=== PATIENT | female | born 1935 | race Caucasian/White ===

== ENCOUNTER 2022-02-01 12:29 | Inpatient (IN) ==
[2022-02-01] MEDS: cloNIDine HCL 0.1 MG TABLET PO SCH (21:34)
[2022-02-01] MEDS: atenoloL 50 MG TABLET PO SCH (21:35)
[2022-02-01] MEDS: ZINC PO SCH (21:36)
[2022-02-01] MEDS: VIT E PO SCH (21:36)
[2022-02-01] MEDS: VIT A PO SCH (21:36)
[2022-02-01] MEDS: VIT C PO SCH (21:36)
[2022-02-01] MEDS: COPPER PO SCH (21:36)
[2022-02-02 06:14] LABS: Basophils % 0.2 %; Eosinophils # 0.1 K/mcL (0.0-0.6); Eosinophils % 0.6 %; Hematocrit 34.7 % (35.3-44.9); Hemoglobin 11.5 g/dL (11.5-15.4); Immature Granulocytes % 1.6 % (0-4); Lymphocytes # 3.2 K/mcL (0.6-4.6); Lymphocytes % 24.3 %; Mean Corpuscular HGB Conc 33.1 g/dL (31.6-35.5); Mean Corpuscular Hemoglobin 29.9 pg (28.0-33.3); Mean Corpuscular Volume 90.1 fL (83.0-100.0); Mean Platelet Volume 11.4 fL (9.4-12.4); Monocytes # 0.9 K/mcL (0.0-1.3); Monocytes % 6.9 %; Neutrophils # 8.7 K/mcL (1.6-8.9); Platelet Count 259 K/mcL (140-400); Red Blood Count 3.85 M/mcL (3.82-4.97); Red Cell Distribution Width 13.7 % (11.5-14.5); Segmented Neutrophils % 66.4 %; White Blood Count 13.1 K/mcL (4.3-11.1)
[2022-02-02] MEDS: *HR* Enoxaparin 40 MG/0.4 ML SYRINGE SQ SCH (06:34)
[2022-02-02 06:39] LABS: Alanine Aminotransferase 39 Units/L (7-52); Albumin/Globulin Ratio 1.2 (1.1-2.2); Alkaline Phosphatase 53 Units/L (34-104); Aspartate Amino Transferase 16 Units/L (13-39); BUN/Creatinine Ratio 24 (6-26); Bilirubin,Total 0.3 mg/dL (0.3-1.0); Blood Urea Nitrogen 24 mg/dL (8-23); Carbon Dioxide 29 mEq/L (23-29); Chloride 101 mEq/L (98-107); Globulin 2.5 g/dL (2.4-3.5); Glucose 106 mg/dL (70-105); Magnesium 1.9 mg/dL (1.6-2.6); Osmolality,Calculated 290 (280-300); Potassium 3.8 mEq/L (3.5-5.1); Sodium 138 mEq/L (136-145); Total Protein 5.5 g/dL (6.4-8.9); eGFR For African Americans > 60 (> 60); eGFR For Non-African Americans 53 (> 60)
[2022-02-02] MEDS: Furosemide 20 MG TABLET PO SCH ×3 (08:05→17:03)
[2022-02-02] MEDS: atenoloL 50 MG TABLET PO SCH ×2 (08:05→19:57)
[2022-02-02] MEDS: cloNIDine HCL 0.1 MG TABLET PO SCH ×2 (08:05→19:57)
[2022-02-02] MEDS: Ascorbic Acid 500 MG TABLET PO SCH (08:12)
[2022-02-02] MEDS: Isosorbide MONOnitrate (24 HR) 30 MG TAB.ER.24H PO SCH (08:12)
[2022-02-02] MEDS: Cyanocobalamin (B-12) 1,000 MCG TABLET PO SCH (08:12)
[2022-02-02] MEDS: Spironolactone 25 MG TABLET PO SCH (08:12)
[2022-02-02] MEDS: predniSONE 20 MG TABLET PO SCH (08:12)
[2022-02-02] MEDS: Aspirin 81 MG TAB.CHEW PO SCH (08:13)
[2022-02-02] MEDS: amLODIPine 5 MG TABLET PO SCH (08:13)
[2022-02-02] MEDS: VIT E PO SCH (08:13)
[2022-02-02] MEDS: COPPER PO SCH (08:13)
[2022-02-02] MEDS: VIT A PO SCH (08:13)
[2022-02-02] MEDS: ZINC PO SCH (08:13)
[2022-02-02] MEDS: VIT C PO SCH (08:13)
[2022-02-03] MEDS: *HR* OxyCODONE/APAP 7.5/325 TABLET PO PRN ×2 (00:08→20:55)
[2022-02-03] MEDS: *HR* Enoxaparin 40 MG/0.4 ML SYRINGE SQ SCH (05:30)
[2022-02-03] MEDS: atenoloL 50 MG TABLET PO SCH ×2 (08:05→20:12)
[2022-02-03] MEDS: predniSONE 20 MG TABLET PO SCH (08:07)
[2022-02-03] MEDS: Spironolactone 25 MG TABLET PO SCH (08:07)
[2022-02-03] MEDS: Furosemide 20 MG TABLET PO SCH ×3 (08:07→16:57)
[2022-02-03] MEDS: Isosorbide MONOnitrate (24 HR) 30 MG TAB.ER.24H PO SCH (08:07)
[2022-02-03] MEDS: cloNIDine HCL 0.1 MG TABLET PO SCH ×2 (08:07→20:12)
[2022-02-03] MEDS: Ascorbic Acid 500 MG TABLET PO SCH (08:07)
[2022-02-03] MEDS: Cyanocobalamin (B-12) 1,000 MCG TABLET PO SCH (08:08)
[2022-02-03] MEDS: Aspirin 81 MG TAB.CHEW PO SCH (08:08)
[2022-02-03] MEDS: amLODIPine 5 MG TABLET PO SCH (08:08)
[2022-02-03] MEDS: Ipratropium/Albuterol Neb 3 ML IH PRN (20:22)
[2022-02-04] MEDS: Ipratropium/Albuterol Neb 3 ML IH PRN ×5 (00:03→21:21)
[2022-02-04] MEDS: *HR* Enoxaparin 40 MG/0.4 ML SYRINGE SQ SCH (05:17)
[2022-02-04] MEDS: atenoloL 50 MG TABLET PO SCH ×2 (08:29→19:59)
[2022-02-04] MEDS: cloNIDine HCL 0.1 MG TABLET PO SCH ×2 (08:30→19:57)
[2022-02-04] MEDS: predniSONE 20 MG TABLET PO SCH (08:30)
[2022-02-04] MEDS: Spironolactone 25 MG TABLET PO SCH (08:31)
[2022-02-04] MEDS: amLODIPine 5 MG TABLET PO SCH (08:31)
[2022-02-04] MEDS: Ascorbic Acid 500 MG TABLET PO SCH (08:31)
[2022-02-04] MEDS: Aspirin 81 MG TAB.CHEW PO SCH (08:31)
[2022-02-04] MEDS: Furosemide 20 MG TABLET PO SCH ×3 (08:31→14:59)
[2022-02-04] MEDS: Cyanocobalamin (B-12) 1,000 MCG TABLET PO SCH (08:32)
[2022-02-04] MEDS: *HR* OxyCODONE/APAP 7.5/325 TABLET PO PRN ×2 (08:32→14:59)
[2022-02-04] MEDS: Isosorbide MONOnitrate (24 HR) 30 MG TAB.ER.24H PO SCH (08:32)
[2022-02-05] MEDS: *HR* Enoxaparin 40 MG/0.4 ML SYRINGE SQ SCH (05:00)
[2022-02-05] MEDS: Furosemide 20 MG TABLET PO SCH ×3 (08:38→16:35)
[2022-02-05] MEDS: Isosorbide MONOnitrate (24 HR) 30 MG TAB.ER.24H PO SCH (08:39)
[2022-02-05] MEDS: cloNIDine HCL 0.1 MG TABLET PO SCH ×2 (08:39→20:19)
[2022-02-05] MEDS: amLODIPine 5 MG TABLET PO SCH (08:39)
[2022-02-05] MEDS: Ascorbic Acid 500 MG TABLET PO SCH (08:39)
[2022-02-05] MEDS: Aspirin 81 MG TAB.CHEW PO SCH (08:39)
[2022-02-05] MEDS: *HR* OxyCODONE/APAP 7.5/325 TABLET PO PRN ×2 (08:40→20:22)
[2022-02-05] MEDS: Cyanocobalamin (B-12) 1,000 MCG TABLET PO SCH (08:40)
[2022-02-05] MEDS: atenoloL 50 MG TABLET PO SCH ×2 (08:40→20:20)
[2022-02-05] MEDS: Spironolactone 25 MG TABLET PO SCH (08:40)
[2022-02-06] MEDS: *HR* Enoxaparin 40 MG/0.4 ML SYRINGE SQ SCH (05:19)
[2022-02-06] MEDS: atenoloL 50 MG TABLET PO SCH ×2 (09:25→22:18)
[2022-02-06] MEDS: cloNIDine HCL 0.1 MG TABLET PO SCH ×2 (09:25→22:19)
[2022-02-06] MEDS: Cyanocobalamin (B-12) 1,000 MCG TABLET PO SCH (09:25)
[2022-02-06] MEDS: Aspirin 81 MG TAB.CHEW PO SCH (09:26)
[2022-02-06] MEDS: *HR* OxyCODONE/APAP 7.5/325 TABLET PO PRN ×2 (09:26→16:43)
[2022-02-06] MEDS: Ascorbic Acid 500 MG TABLET PO SCH (09:26)
[2022-02-06] MEDS: Isosorbide MONOnitrate (24 HR) 30 MG TAB.ER.24H PO SCH (09:26)
[2022-02-06] MEDS: Spironolactone 25 MG TABLET PO SCH (09:26)
[2022-02-06] MEDS: amLODIPine 5 MG TABLET PO SCH (09:26)
[2022-02-06] MEDS: Furosemide 20 MG TABLET PO SCH (09:26)
[2022-02-06] MEDS: Ipratropium/Albuterol Neb 3 ML IH PRN (09:41)
[2022-02-06] MEDS: Torsemide 20 MG TABLET PO SCH ×2 (14:41→21:41)
[2022-02-07] MEDS: *HR* Enoxaparin 40 MG/0.4 ML SYRINGE SQ SCH (04:34)
[2022-02-07 05:55] LABS: Basophils % 0.3 %; Eosinophils # 0.6 K/mcL (0.0-0.6); Eosinophils % 3.8 %; Hematocrit 40.4 % (35.3-44.9); Hemoglobin 13.2 g/dL (11.5-15.4); Lymphocytes % 19.2 %; Mean Corpuscular HGB Conc 32.7 g/dL (31.6-35.5); Mean Corpuscular Hemoglobin 29.5 pg (28.0-33.3); Mean Corpuscular Volume 90.4 fL (83.0-100.0); Mean Platelet Volume 10.7 fL (9.4-12.4); Monocytes % 6.8 %; Neutrophils # 10.2 K/mcL (1.6-8.9); Platelet Count 329 K/mcL (140-400); Red Blood Count 4.47 M/mcL (3.82-4.97); Red Cell Distribution Width 13.7 % (11.5-14.5); Segmented Neutrophils % 68.9 %; White Blood Count 14.8 K/mcL (4.3-11.1)
[2022-02-07 06:09] LABS: Lymphocytes # 2.8 K/mcL (0.6-4.6)
[2022-02-07 06:13] LABS: Calcium 9.8 mg/dL (8.6-10.3); Magnesium 2.5 mg/dL (1.6-2.6); Potassium 3.7 mEq/L (3.5-5.1)
[2022-02-07 06:51] VITALS: RESP 16
[2022-02-07] MEDS: cloNIDine HCL 0.1 MG TABLET PO SCH ×2 (07:57→21:34)
[2022-02-07] MEDS: atenoloL 50 MG TABLET PO SCH ×2 (07:57→21:34)
[2022-02-07] MEDS: Aspirin 81 MG TAB.CHEW PO SCH (07:57)
[2022-02-07] MEDS: Ascorbic Acid 500 MG TABLET PO SCH (07:57)
[2022-02-07] MEDS: Spironolactone 25 MG TABLET PO SCH (07:58)
[2022-02-07] MEDS: Cyanocobalamin (B-12) 1,000 MCG TABLET PO SCH (07:58)
[2022-02-07] MEDS: amLODIPine 5 MG TABLET PO SCH (07:58)
[2022-02-07] MEDS: Isosorbide MONOnitrate (24 HR) 30 MG TAB.ER.24H PO SCH (07:58)
[2022-02-07] MEDS ORDERED: Torsemide 20 MG TABLET PO SCH (08:00)
[2022-02-07] MEDS ORDERED: Furosemide 20 MG TABLET PO SCH (15:00)
[2022-02-08] MEDS: *HR* Enoxaparin 40 MG/0.4 ML SYRINGE SQ SCH (05:53)
[2022-02-08 06:47] VITALS: BP 134/65; PULSE 49; TEMP 97.8; O2SAT 95
[2022-02-08] MEDS: Ascorbic Acid 500 MG TABLET PO SCH (08:33)
[2022-02-08] MEDS: atenoloL 50 MG TABLET PO SCH (08:33)
[2022-02-08] MEDS: cloNIDine HCL 0.1 MG TABLET PO SCH (08:33)
[2022-02-08] MEDS: Isosorbide MONOnitrate (24 HR) 30 MG TAB.ER.24H PO SCH (08:33)
[2022-02-08] MEDS: Aspirin 81 MG TAB.CHEW PO SCH (08:34)
[2022-02-08] MEDS: amLODIPine 5 MG TABLET PO SCH (08:34)
[2022-02-08] MEDS: Cyanocobalamin (B-12) 1,000 MCG TABLET PO SCH (08:34)
[2022-02-08] MEDS: Spironolactone 25 MG TABLET PO SCH (08:34)
[2022-02-08 10:41] LABS: Basophils % 0.2 %; Eosinophils # 0.4 K/mcL (0.0-0.6); Eosinophils % 2.9 %; Hematocrit 38.8 % (35.3-44.9); Hemoglobin 12.7 g/dL (11.5-15.4); Immature Granulocytes % 0.6 % (0-4); Lymphocytes # 3.4 K/mcL (0.6-4.6); Lymphocytes % 25.2 %; Mean Corpuscular HGB Conc 32.7 g/dL (31.6-35.5); Mean Corpuscular Hemoglobin 30.2 pg (28.0-33.3); Mean Corpuscular Volume 92.2 fL (83.0-100.0); Mean Platelet Volume 10.6 fL (9.4-12.4); Monocytes # 0.8 K/mcL (0.0-1.3); Monocytes % 6.2 %; Neutrophils # 8.8 K/mcL (1.6-8.9); Platelet Count 270 K/mcL (140-400); Red Blood Count 4.21 M/mcL (3.82-4.97); Red Cell Distribution Width 14.1 % (11.5-14.5); Segmented Neutrophils % 64.9 %; White Blood Count 13.6 K/mcL (4.3-11.1)
[2022-02-08 11:25] LABS: BUN/Creatinine Ratio 35 (6-26); Blood Urea Nitrogen 37 mg/dL (8-23); Calcium 9.6 mg/dL (8.6-10.3); Carbon Dioxide 28 mEq/L (23-29); Chloride 105 mEq/L (98-107); Glucose 221 mg/dL (70-105); Osmolality,Calculated 303 (280-300); Potassium 4.2 mEq/L (3.5-5.1); Sodium 139 mEq/L (136-145); eGFR For African Americans > 60 (> 60); eGFR For Non-African Americans 50 (> 60)
== END 2022-02-08 13:00 | disposition home health service (06) | DRG 689 ==
LOC: INPGRE 16:34
PROVIDERS: ADMIT Family Medicine; ATTEND Family Medicine